=== PATIENT | female | born 1995 | race Caucasian/White ===

== ENCOUNTER 2019-08-16 14:02 | Outpatient (CLI) | payer MEDICAID ==
[~2019-08-16] VITALS: Ht 160 cm; Wt 83.6 kg
--- NOTE | 2019-08-16 14:10 | NUR ---
[id number] 34.3 WEEK PATIENT FROM OUT OF AREA AMBULATORY TO LR 3 WITH COMPLAINT OF 'ONE CONTRACTION AT 1230 LASTING 10 MIN.' DENIES LOF, VB. REPORTS GOOD MOVEMENT. DENIES COMPLICATIONS WITH . REPORTS GBS (+). REPORTS ELEVATED BP AT OFFICE IN [facility] [place] ELEVATED 140'S/80'S LAST WEEK AND 24 HOUR URINE WAS NEG AT THAT OFFICE. DENIES HEADACHE, BLURRY VISION OR SWELLING IN HANDS FEET OR FACE. DENIES FURTHER CONTRACTION PAIN [place] FOLLOWING ONE CONTRACTION AT 1230. UPDATED ON PLAN OF CARE AND PLACED ON EFM. BP 136/83. SVE C/TH/H. 1425-DR. GILL UPDATED CURRENT BP 123/73, SEE MD NOTIFICATION.
[2019-08-16 14:38] VITALS: BP 136/83; PULSE 101; TEMP 98.6
[2019-08-16 14:45] VITALS: BP 123/73; PULSE 94; TEMP 98.6
[2019-08-16 15:00] VITALS: BP 126/81; PULSE 89
[2019-08-16 15:11] VITALS: BP 121/78; PULSE 99
--- NOTE | 2019-08-16 15:11 | NUR ---
1511-OFF EFM. REVIEWED DISCHARGE PLAN AND ORDER FROM MD. VERBALIZED UNDERSTANDING. REVIEWED EARLY LABOR AND DISCOMFORTS OF EDUCATION. REVIEWED KICK COUNTS AND WHEN TO RETURN TO HOSPITAL. DENIES QUESTIONS. 1525-AMBULATORY OFF UNIT WITH SIGNIFICANT OTHER, JOHN.
== END 2019-08-16 15:25 | disposition home or self-care (01) ==
LOC: LDRO 14:02
DX: O62.9 Abnormality of forces of labor, unspecified (principal); Z3A.34 34 weeks gestation of pregnancy